=== PATIENT | male | born 1945 | race Caucasian/White ===

== ENCOUNTER 2024-10-28 16:12 | Emergency (ER) | payer OTHER ==
[2024-10-28] MEDS ORDERED: Ipratropium/Albuterol 3 ML NEB ONE (17:00)
[2024-10-28] MEDS ORDERED: methylPREDNISolone Sod Succ/PF 125 MG/2 ML VIAL ONE (17:21)
[2024-10-28 17:58] LABS: ALT (SGPT) 10 U/L (8-55); AST (SGOT) 11 U/L (5-34); Alkaline Phosphatase 113 U/L (40-110); Anion Gap 14 mmol/L (10-20); BUN (Urea Nitrogen) 24 mg/dL (8.4-25.7); Bilirubin, Total 0.7 mg/dL (0.2-1.2); Calc. Creatinine Clearance 0 mL/min (70-130); Carbon Dioxide 20 mmol/L (23-31); Chloride 112 mmol/L (98-107); Estimated GFR 60; Globulin 2.8 g/dL (2.4-3.5); Glucose 127 mg/dL (83-110); Potassium 4.3 mmol/L (3.5-5.1); Protein, Total 6.8 g/dL (5.8-8.1); Sodium 142 mmol/L (136-145)
[2024-10-28 18:04] LABS: #Basophils 0.03 10x3/uL (0.0-0.2); #Eosinophils 0.45 10x3/uL (0.0-0.5); #Monocytes 0.42 10x3/uL (0.0-1.1); #Neutrophils 4.38 10x3/uL (1.5-8.4); %Basophils 0.4 % (0.0-2.0); %Eosinophils 6.6 % (0.0-6.0); %Lymphocytes 21.7 % (18.0-47.0); %Monocytes 6.2 % (0.0-10.0); %Neutrophils 64.8 % (40.0-75.0); Hematocrit 36.5 % (38.8-50.0); Hemoglobin 12.4 g/dL (13.5-17.5); Mean Corpuscular Hemoglobin 29.9 pg (27.0-33.0); Mean Platelet Volume 9.2 fL (7.4-10.4); Platelet Count 225 10x3/uL (150-450); RBC Distribution Width 13.7 % (11.5-14.5); Red Blood Cell (RBC) Count 4.15 10x6/uL (4.32-5.72); Troponin I 0.016 ng/mL (< 0.028); White Blood Cell (WBC) Count 6.8 10x3/uL (3.5-10.5)
== END 2024-10-28 19:00 | disposition home or self-care (01) ==
LOC: CSHERS 16:12
DX: J44.1 Chronic obstructive pulmonary disease with (acute) exacerbation (principal); J18.0 Bronchopneumonia, unspecified organism; E11.9 Type 2 diabetes mellitus without complications; I25.2 Old myocardial infarction
CPT/HCPCS: 71045; 80053; 83880; 84484; 85025; 87428; 93005; 94640; 96374; J2919; J7620